=== PATIENT | male | born 1985 | race Two or more races ===

== ENCOUNTER 2020-01-16 22:03 | Emergency (ER) | payer OTHER ==
[~2020-01-16] VITALS: Ht 170.2 cm; Wt 88.5 kg
[2020-01-17 00:52] VITALS: BP 123/80
== END 2020-01-17 02:14 | disposition home or self-care (01) ==
LOC: ER 22:08
DX: S61.215A Laceration without foreign body of left ring finger without damage to nail, initial encounter (principal); S69.92XA Unspecified injury of left wrist, hand and finger(s), initial encounter; X58.XXXA Exposure to other specified factors, initial encounter; Y93.89 Activity, other specified; Y92.89 Other specified places as the place of occurrence of the external cause; Y99.8 Other external cause status
CPT/HCPCS: 12002; 12014